=== PATIENT | male | born 1985 | race Caucasian/White ===

== ENCOUNTER 2019-10-17 00:03 | Emergency (ER) | payer OTHER ==
[2019-10-17 00:25] VITALS: TEMP 98.4
--- NOTE | 2019-10-17 01:30 | XR ---
EXAMINATION TYPE: XR chest 2V DATE OF EXAM: 10/17/2019 COMPARISON: NONE HISTORY: Short of breath TECHNIQUE: 2 views FINDINGS: Heart and mediastinum are normal. Lungs are clear. Diaphragm is normal. Bony thorax appears normal. Pulmonary vascularity is normal. IMPRESSION: Normal chest.
--- NOTE | 2019-10-17 01:56 | ED ---
General Adult HPI - General Chief complaint: Chest Pain Stated complaint: Chest Pain Time Seen by Provider: 10/17/19 00:27 Source: patient, family, RN notes reviewed Mode of arrival: ambulatory Limitations: no limitations - History of Present Illness Initial comments: 34-year-old male presents to the emergency determine for a chief complaint of chest pain. Patient states that he has had pain on the left side of his neck after sleeping on it wrong. Patient states it started moving his upper back and left arm. States he now has some mild chest tightness that worsens with movement especially lifting the left arm. He denies shortness of breath. He denies chest pain with exertion. He denies any associated risk factors such as diabetes, hypertension, hypercholesterolemia.Patient has no other complaints at this time including shortness of breath, chest pain, abdominal pain, nausea or vomiting, headache, or visual changes. - Related Data Allergies Allergy/AdvReac Type Severity Reaction Status Date / Time No Known Allergies Allergy Verified 10/17/19 00:25 Review of Systems ROS Statement: Those systems with pertinent positive or pertinent negative responses have been documented in the HPI. ROS Other: All systems not noted in ROS Statement are negative. Past Medical History Past Medical History: No Reported History History of Any Multi-Drug Resistant Organisms: None Reported Past Surgical History: Appendectomy Past Psychological History: No Psychological Hx Reported Smoking Status: Never smoker Past Alcohol Use History: Daily Past Drug Use History: Marijuana General Exam Limitations: no limitations General appearance: alert, in no apparent distress Head exam: Present: atraumatic, normocephalic, normal inspection Eye exam: Present: normal appearance, PERRL, EOMI. Absent: scleral icterus, conjunctival injection ENT exam: Present: normal exam, mucous membranes moist Neck exam: Present: normal inspection, full ROM. Absent: tenderness, meningismus, lymphadenopathy Respiratory exam: Present: normal lung sounds bilaterally, chest wall tenderness (Tenderness noted to the anterior chest wall). Absent: respiratory distress, wheezes, rales, rhonchi, stridor Cardiovascular Exam: Present: regular rate, normal rhythm, normal heart sounds. Absent: systolic murmur, diastolic murmur, rubs, gallop, clicks Extremities exam: Present: normal capillary refill (Radial pulses 2+ in upper ex tremities bilaterally) Neurological exam: Present: alert Course Vital Signs 10/17/19 10/17/19 00:17 02:46 Temperature 98.4 F Pulse Rate 74 71 Respiratory 20 18 Rate Blood Pressure 144/91 135/92 O2 Sat by Pulse 98 98 Oximetry EKG Findings - EKG Comments: EKG Findings:: Normal sinus rhythm, ventricular rate 70, MA interval 160, QTC 421, no ST elevation or depression Medical Decision Making - Medical Decision Making Chest x-ray shows a normal chest. EKG shows a normal sinus rhythm with a ventricular rate of 70. No ST elevation or depression. Patient describes his pain as a tightness that worsens with movement essentially lifting the left arm. He has had muscular skeletal left sided neck and upper back pain as well. Tenderness with palpation of the chest. Patient is cardiac risk factors. He is a never smoker. Pain is consistent with a chest wall syndrome musculoskeletal pain. Patient will follow up with primary care in 1-2 days. He will return for any worsening symptoms. Disposition Clinical Impression: Chest wall pain Disposition: HOME SELF-CARE Condition: Good Instructions (If sedation given, give patient instructions): Chest Pain (ED), Costochondritis (ED) Additional Instructions: Please take Motrin and Tylenol for pain. Please follow-up with primary care in 1-2 days for recheck. If you have any worsening symptoms return here to the emergency room immediately. Is patient prescribed a controlled substance at d/c from ED?: No Referrals: Dionte Carrera MD [STAFF PHYSICIAN] - 1-2 days Time of Disposition: 01:55
[2019-10-17 02:47] VITALS: BP 135/92; PULSE 71; RESP 18
== END 2019-10-17 02:46 | disposition home or self-care (01) ==
LOC: EC 00:03
DX: R07.89 Other chest pain (principal); M54.2 Cervicalgia; M54.9 Dorsalgia, unspecified
CPT/HCPCS: 71046; 93005; 99285

== ENCOUNTER 2019-12-17 15:46 | Emergency (ER) | payer OTHER ==
[2019-12-17 16:01] VITALS: RESP 18
[2019-12-17] MEDS ORDERED: SODIUM CHLORIDE 0.9% 1,000 ML IV STA ×2 (16:30)
[2019-12-17] MEDS ORDERED: ASPIRIN 81 MG PO STA (16:30)
--- NOTE | 2019-12-17 16:33 | ED ---
Chest Pain HPI - General Chief Complaint: Chest Pain Stated Complaint: recheck - chest pain Time Seen by Provider: 12/17/19 16:08 Source: patient, RN notes reviewed, old records reviewed Mode of arrival: ambulatory Limitations: no limitations - History of Present Illness Initial Comments: Michele is a 34-year-old male presents emergency department today for evaluation for complaints of some left-sided chest pain as a pressure on his chest with complaints of some pain going to the jaw and left arm and the right side of his chest for the past 3 days. Patient states that he has had no significant dyspnea. Patient reports pain is better with stretching. Denies any nausea. He was seen in emergency department a few months ago for similar complaints. He is up-to-date. Follow-up with a primary care doctor since that time. He reports a family history of heart disease. He denies any personal history of hypertension or hyperlipidemia. He states he is not seen a primary care doctor in over 10 years. He is a nonsmoker. - Related Data Allergies Allergy/AdvReac Type Severity Reaction Status Date / Time No Known Allergies Allergy Verified 12/17/19 16:01 Review of Systems ROS Statement: Those systems with pertinent positive or pertinent negative responses have been documented in the HPI. ROS Other: All systems not noted in ROS Statement are negative. EKG Findings - EKG Comments: EKG Findings:: EKG shows normal sinus rhythm with sinus arrhythmia, normal EKG. Ventricular rate of 74 bpm.. Intervals 146 ms. QRS duration is 92 ms. QT QTc is 374/4:15 milliseconds. Past Medical History Past Medical History: No Reported History History of Any Multi-Drug Resistant Organisms: None Reported Past Surgical History: Appendectomy Past Psychological History: No Psychological Hx Reported Smoking Status: Never smoker Past Alcohol Use History: Daily Past Drug Use History: Marijuana General Exam - General Exam Comments Initial Comments: 34-year-old male. Alert and oriented 3. No significant distress. Limitations: no limitations General appearance: alert, in no apparent distress Head exam: Present: atraumatic, normocephalic, normal inspection Eye exam: Present: normal appearance, PERRL, EOMI. Absent: scleral icterus, conjunctival injection, periorbital swelling ENT exam: Present: normal exam, mucous membranes moist Neck exam: Present: normal inspection. Absent: tenderness, meningismus, lymphadenopathy Respiratory exam: Present: normal lung sounds bilaterally. Absent: respiratory distress, wheezes, rales, rhonchi, stridor Cardiovascular Exam: Present: regular rate, normal rhythm, normal heart sounds. Absent: systolic murmur, diastolic murmur, rubs, gallop, clicks GI/Abdominal exam: Present: soft, normal bowel sounds. Absent: distended, tenderness, guarding, rebound, rigid Extremities exam: Present: normal inspection, full ROM, normal capillary refill. Absent: tenderness, pedal edema, joint swelling, calf tenderness Back exam: Present: normal inspection Neurological exam: Present: alert, oriented X3, CN II-XII intact Psychiatric exam: Present: normal affect, normal mood Course Vital Signs 12/17/19 12/17/19 12/17/19 15:58 18:00 19:07 Temperature 98.2 F 97.9 F Pulse Rate 78 88 73 Respiratory 18 18 18 Rate Blood Pressure 156/92 117/76 125/70 O2 Sat by Pulse 99 98 98 Oximetry Chest Pain [facility] Patient is a 34 year old male whom presents today for concern for chest pain for 2 days. Labs were reviewed and normal, negative troponin and CXR is negative for acute changes. Patient pain is better with stretching, and discussed seems to be musculoskeletal. Patient is informed of labs and treatment plan. Discussed patient needs PCP follow up, but will give referral to cardiology. Discussed return parameters. Disposition Clinical Impression: Chest pain Disposition: HOME SELF-CARE Condition: Good Instructions (If sedation given, give patient instructions): Chest Pain (ED) Additional Instructions: Patient is a follow-up with your primary care physician within the next few weeks. There is any other alarming signs or symptoms please return to the ER for reevaluation. Recommended following up with cardiology. Is patient prescribed a controlled substance at d/c from ED?: No Referrals: None,Stated [Primary Care Provider] - 1-2 days Zachery Nava MD [STAFF PHYSICIAN] - 1-2 days Time of Disposition: 18:12
[2019-12-17 17:06] LABS: Partial Thromboplastin Time 26.9 sec (22.0-30.0); Prothrombin Time 10.5 sec (9.0-12.0)
[2019-12-17 17:07] LABS: Basophils # (A) 0.1 k/uL (0-0.2); Basophils % (A) 1 %; Eosinophils # (A) 0.1 k/uL (0-0.7); Eosinophils % (A) 1 %; HCT 40.1 % (39.0-53.0); HGB 13.4 gm/dL (13.0-17.5); Lymphocytes # (A) 3.2 k/uL (1.0-4.8); Lymphocytes % (A) 27 %; MCHC 33.3 g/dL (31.0-37.0); Mean Platelet Volume 7.4; Monocytes # (A) 0.5 k/uL (0-1.0); Monocytes % (A) 4 %; Neutrophils # (A) 7.9 k/uL (1.3-7.7); Neutrophils % (A) 66 %; Platelet Count 226 k/uL (150-450); RBC 4.61 m/uL (4.30-5.90)
--- NOTE | 2019-12-17 17:08 | XR ---
EXAMINATION TYPE: XR chest 2V DATE OF EXAM: 12/17/2019 COMPARISON: NONE HISTORY: Chest pain TECHNIQUE: 2 views FINDINGS: Heart and mediastinum are normal. Lungs are clear. Diaphragm is normal. Bony thorax appears normal. IMPRESSION: Normal chest.
[2019-12-17 17:13] LABS: ALT 35 U/L (4-49); AST 27 U/L (17-59); African American GFR (CKD) >90 (>60 ml/min/1.73 sqM); Albumin 4.4 g/dL (3.5-5.0); Alkaline Phosphatase 94 U/L (38-126); Amylase 41 U/L (30-110); Anion Gap 7 mmol/L; Blood Urea Nitrogen 17 mg/dL (9-20); Calcium 9.2 mg/dL (8.4-10.2); Carbon Dioxide 24 mmol/L (22-30); Chloride 106 mmol/L (98-107); Glucose 95 mg/dL (74-99); Magnesium 1.8 mg/dL (1.6-2.3); Non-African American GFR(CKD) >90 (>60 ml/min/1.73 sqM); Potassium 3.7 mmol/L (3.5-5.1); Sodium 137 mmol/L (137-145); Total Bilirubin 0.6 mg/dL (0.2-1.3); Total Protein 7.2 g/dL (6.3-8.2)
[2019-12-17 19:08] VITALS: BP 125/70; PULSE 73; TEMP 97.9
== END 2019-12-17 19:08 | disposition home or self-care (01) ==
LOC: EC 15:46
DX: R07.9 Chest pain, unspecified (principal); R68.84 Jaw pain; M79.602 Pain in left arm; Z82.49 Family history of ischemic heart disease and other diseases of the circulatory system
CPT/HCPCS: 36415; 71046; 80053; 82150; 83690; 83735; 83880; 84484; 85025; 85610; 85730; 93005; 96360; 96361; 99285

== ENCOUNTER 2020-04-12 10:03 | Emergency (ER) | payer OTHER ==
[2020-04-12 10:11] VITALS: PULSE 90; RESP 18
[2020-04-12] MEDS ORDERED: SODIUM CHLORIDE 0.9% 500 ML 500 ML IV STA (10:37)
--- NOTE | 2020-04-12 10:44 | ED ---
General Adult HPI - General Chief complaint: Shortness of Breath Stated complaint: NVD,Cough Time Seen by Provider: 04/12/20 10:18 Source: patient, RN notes reviewed, old records reviewed Mode of arrival: ambulatory Limitations: no limitations - History of Present Illness Initial comments: 34-year-old male patient to ED for evaluation. Patient has gallbladder removed 6 days ago, an elective procedure. 3 days later he began developing typical covered symptoms. Included loss of taste and smell, some nausea vomiting diarrhea, cough, small amount of shortness of breath with exertion. Patient was that he has had a waxing and waning fever. T-max of 102. He reports that he did have a coronavirus test on Thursday to get the results of which are negative. He has been told by his surgeon who operates out of a different facility to come get evaluated. He does not report any abdominal pain. Did not report any other complaints. Systemic: Pt denies fatigue, rash. Pt denies weakness, night sweats, weight loss. Neuro: Pt denies headache, visual disturbances, syncope or pre-syncope. HEENT: Pt denies ocular discharge or irritation, otalgia, rhinorrhea, pharyngitis or notable lymphadenopathy. Cardiopulmonary: Pt denies chest pain, heart palpitations, dyspnea on exertion. Abdominal/GI: Pt denies abdominal pain, n/v/d. : Pt denies dysuria, burning w/ urination, frequency/urgency. Denies new onset urinary or bowel incontinence. MSK: Pt denies myalgia, loss of strength or function in extremities. Neuro: Pt denies new onset weakness, paresthesias. - Related Data Home Medications Medication Instructions Recorded Confirmed Acetaminophen [Tylenol Extra 500 mg PO Q4H PRN 04/12/20 04/12/20 Strength] Ascorbic Acid [Vitamin C] 1,000 mg PO AC-SUPPER 04/12/20 04/12/20 Garlic 1 tab PO AC-SUPPER 04/12/20 04/12/20 Ibuprofen [Motrin Ib] 200 mg PO Q4H PRN 04/12/20 04/12/20 Ibuprofen [Motrin] 800 mg PO TID PRN 04/12/20 04/12/20 Magnesium(Unknown) 1 tab PO AC-SUPPER 04/12/20 04/12/20 Multivitamins, Thera [Multivitamin 1 tab PO AC-SUPPER 04/12/20 04/12/20 (formulary)] [place]-3 Fatty Acids/Fish Oil [Fish 1 cap PO AC-SUPPER 04/12/20 04/12/20 Oil 1,000 mg Softgel] Vitamin D3(Unknown) 1 tab PO AC-SUPPER 04/12/20 04/12/20 Zinc 50 mg PO AC-SUPPER 04/12/20 04/12/20 Previous Rx's Medication Instructions Recorded Dexamethasone [Decadron] 6 mg PO Q24HR 10 Days #10 tablet 04/12/20 Allergies Allergy/AdvReac Type Severity Reaction Status Date / Time No Known Allergies Allergy Verified 04/12/20 11:43 Review of Systems ROS Statement: Those systems with pertinent positive or pertinent negative responses have been documented in the HPI. ROS Other: All systems not noted in ROS Statement are negative. Past Medical History Past Medical History: No Reported History, Liver Disease Additional Past Medical History / Comment(s): fatty liver History of Any Multi-Drug Resistant Organisms: None Reported Past Surgical History: Appendectomy, Cholecystectomy Past Psychological History: No Psychological Hx Reported Smoking Status: Never smoker Past Alcohol Use History: Daily Past Drug Use History: Marijuana General Exam - General Exam Comments Initial Comments: Constitutional: NAD, AOX3, Pt has pleasant affect. HEENT: NC/AT, trachea midline, neck supple, no lymphadenopathy. Posterior pharynx non erythematous, without exudates. External ears appear normal, without discharge. Mucous membranes moist. Eyes PERRLA, EOM intact. There is no scleral icterus. No pallor noted. Cardiopulmonary: RRR, no murmurs, rubs or gallops, no JVD noted. Lungs CTAB in anterior and posterior chinchilla. No peripheral edema. Abdominal exam: Abdomen soft and non-distended. Abdomen non-tender to palpation in all 4 quadrants. Bowel sounds active in LLQ. No hepatosplenomegaly. No ecchymosis. incision sites are clean and dry. Neuro: CN II-XII grossly intact. No nuchal rigidity. No raccon eyes, no campuzano sign, no hemotympanum. No cervical spinal tenderness. MSK: No posterior calf tenderness bilaterally, homans sign negative bilaterally. Posterior tibialis and radial pulse +2 bilaterally. Sensation intact in upper and lower extremities. Full active ROM in upper and lower extremities, 5/5 stregnth. Limitations: no limitations Course Vital Signs 04/12/20 10:05 Temperature 98.6 F Pulse Rate 90 Respiratory 18 Rate Blood Pressure 129/90 O2 Sat by Pulse 98 Oximetry Medical Decision Making - Medical Decision Making 34 year old male pt to ed with symptoms consistent with covid. Physical exam negative for acute pathology. Laboratory investigations significant for covid positive. CXR displayed developing pneumonia. Patient is in no respiratory distress. Will be discharged with close return precautions, burst steroid treatment and close outpatient follow up. Patient will be given first dose in ED, I did call pharmacy and change it to 9 days, which will give him a total of 10. This dosing was recommended by Pharmacist Tri and attending physician. Case discussed in depth with Dr. Reeder. - Lab Data Result diagrams: 04/12/20 10:56 04/12/20 10:56 Lab Results 04/12/20 04/12/20 04/12/20 Range/Units 10:56 10:56 10:56 WBC 5.1 (3.8-10.6) k/uL RBC 4.82 (4.30-5.90) m/uL Hgb 14.1 (13.0-17.5) gm/dL Hct 41.0 (39.0-53.0) % MCV 84.9 (80.0-100.0) fL MCH 29.1 (25.0-35.0) pg MCHC 34.3 (31.0-37.0) g/dL RDW 13.4 (11.5-15.5) % Plt Count 173 (150-450) k/uL MPV 7.6 Neutrophils % 68 % Lymphocytes % 25 % Monocytes % 5 % Eosinophils % 0 % Basophils % 1 % Neutrophils # 3.5 (1.3-7.7) k/uL Lymphocytes # 1.3 (1.0-4.8) k/uL Monocytes # 0.2 (0-1.0) k/uL Eosinophils # 0.0 (0-0.7) k/uL Basophils # 0.0 (0-0.2) k/uL Sodium 137 (137-145) mmol/L Potassium 3.9 (3.5-5.1) mmol/L Chloride 103 (98-107) mmol/L Carbon Dioxide 25 (22-30) mmol/L Anion Gap 9 mmol/L BUN 15 (9-20) mg/dL Creatinine 0.93 (0.66-1.25) mg/dL Est GFR (CKD-EPI)AfAm >90 (>60 ml/min/1.73 sqM) Est GFR (CKD-EPI)NonAf >90 (>60 ml/min/1.73 sqM) Glucose 101 H (74-99) mg/dL Plasma Lactic Acid [place] (0.7-2.0) mmol/L Calcium 8.7 (8.4-10.2) mg/dL Total Bilirubin 0.5 (0.2-1.3) mg/dL AST 46 (17-59) U/L ALT 49 (4-49) U/L Alkaline Phosphatase 88 (38-126) U/L Troponin I (0.000-0.034) ng/mL NT-Pro-B Natriuret Pep pg/mL Total Protein 7.5 (6.3-8.2) g/dL Albumin 4.2 (3.5-5.0) g/dL Lipase 41 (23-300) U/L Urine Color Yellow Urine Appearance Clear (Clear) Urine pH 6.0 (5.0-8.0) Ur Specific [place] 1.028 (1.001-1.035) Urine Protein Trace H (Negative) Urine Glucose (UA) Negative (Negative) Urine Ketones Negative (Negative) Urine Blood Negative (Negative) Urine Nitrite Negative (Negative) Urine Bilirubin Negative (Negative) Urine Urobilinogen <2.0 (<2.0) mg/dL Ur Leukocyte Esterase Negative (Negative) Coronavirus (PCR) (Not Detectd) 04/12/20 04/12/20 04/12/20 Range/Units 10:56 10:56 10:56 WBC (3.8-10.6) k/uL RBC (4.30-5.90) m/uL Hgb (13.0-17.5) gm/dL Hct (39.0-53.0) % MCV (80.0-100.0) fL MCH (25.0-35.0) pg MCHC (31.0-37.0) g/dL RDW (11.5-15.5) % Plt Count (150-450) k/uL MPV Neutrophils % % Lymphocytes % % Monocytes % % Eosinophils % % Basophils % % Neutrophils # (1.3-7.7) k/uL Lymphocytes # (1.0-4.8) k/uL Monocytes # (0-1.0) k/uL Eosinophils # (0-0.7) k/uL Basophils # (0-0.2) k/uL Sodium (137-145) mmol/L Potassium (3.5-5.1) mmol/L Chloride (98-107) mmol/L Carbon Dioxide (22-30) mmol/L Anion Gap mmol/L BUN (9-20) mg/dL Creatinine (0.66-1.25) mg/dL Est GFR (CKD-EPI)AfAm (>60 ml/min/1.73 sqM) Est GFR (CKD-EPI)NonAf (>60 ml/min/1.73 sqM) Glucose (74-99) mg/dL Plasma Lactic Acid [place] 0.8 (0.7-2.0) mmol/L Calcium (8.4-10.2) mg/dL Total Bilirubin (0.2-1.3) mg/dL AST (17-59) U/L ALT (4-49) U/L Alkaline Phosphatase (38-126) U/L Troponin I <0.012 (0.000-0.034) ng/mL NT-Pro-B Natriuret Pep <11 pg/mL Total Protein (6.3-8.2) g/dL Albumin (3.5-5.0) g/dL Lipase (23-300) U/L Urine Color Urine Appearance (Clear) Urine pH (5.0-8.0) Ur Specific [place] (1.001-1.035) Urine Protein (Negative) Urine Glucose (UA) (Negative) Urine Ketones (Negative) Urine Blood (Negative) Urine Nitrite (Negative) Urine Bilirubin (Negative) Urine Urobilinogen (<2.0) mg/dL Ur Leukocyte Esterase (Negative) Coronavirus (PCR) (Not Detectd) 04/12/20 Range/Units 11:32 WBC (3.8-10.6) k/uL RBC (4.30-5.90) m/uL Hgb (13.0-17.5) gm/dL Hct (39.0-53.0) % MCV (80.0-100.0) fL MCH (25.0-35.0) pg MCHC (31.0-37.0) g/dL RDW (11.5-15.5) % Plt Count (150-450) k/uL MPV Neutrophils % % Lymphocytes % % Monocytes % % Eosinophils % % Basophils % % Neutrophils # (1.3-7.7) k/uL Lymphocytes # (1.0-4.8) k/uL Monocytes # (0-1.0) k/uL Eosinophils # (0-0.7) k/uL Basophils # (0-0.2) k/uL Sodium (137-145) mmol/L Potassium (3.5-5.1) mmol/L Chloride (98-107) mmol/L Carbon Dioxide (22-30) mmol/L Anion Gap mmol/L BUN (9-20) mg/dL Creatinine (0.66-1.25) mg/dL Est GFR (CKD-EPI)AfAm (>60 ml/min/1.73 sqM) Est GFR (CKD-EPI)NonAf (>60 ml/min/1.73 sqM) Glucose (74-99) mg/dL Plasma Lactic Acid [place] (0.7-2.0) mmol/L Calcium (8.4-10.2) mg/dL Total Bilirubin (0.2-1.3) mg/dL AST (17-59) U/L ALT (4-49) U/L Alkaline Phosphatase (38-126) U/L Troponin I (0.000-0.034) ng/mL NT-Pro-B Natriuret Pep pg/mL Total Protein (6.3-8.2) g/dL Albumin (3.5-5.0) g/dL Lipase (23-300) U/L Urine Color Urine Appearance (Clear) Urine pH (5.0-8.0) Ur Specific [place] (1.001-1.035) Urine Protein (Negative) Urine Glucose (UA) (Negative) Urine Ketones (Negative) Urine Blood (Negative) Urine Nitrite (Negative) Urine Bilirubin (Negative) Urine Urobilinogen (<2.0) mg/dL Ur Leukocyte Esterase (Negative) Coronavirus (PCR) Detected A (Not Detectd) - EKG Data -: EKG Interpreted by Me (and Dr. Reeder ) EKG Comments: ventricular rate 92, NM interval 164, QRS 96, QT/QTC 354/437. No evidence rhythm, normal EKG, no concern for acute ischemia. Disposition Clinical Impression: COVID-19 Disposition: HOME SELF-CARE Condition: Stable Instructions (If sedation given, give patient instructions): Upper Respiratory Infection (ED) Additional Instructions: Follow up with PCP tomorrow. Begin taking multivitamin which contains zinc and vitamin c. Take steroids as directed. Return to ED immediately if symptoms worsen in anyway. Prescriptions: Dexamethasone [Decadron] 6 mg PO Q24HR 10 Days #10 tablet Is patient prescribed a controlled substance at d/c from ED?: No Referrals: Jose Dejesus DO [Primary Care Provider] - 1-2 days
--- NOTE | 2020-04-12 11:18 | XR ---
EXAMINATION TYPE: XR chest 2V DATE OF EXAM: 04/12/2020 COMPARISON: 12/17/2019 TECHNIQUE: PA and lateral views submitted. HISTORY: Shortness of breath FINDINGS: The lungs are clear and there is no pneumothorax, pleural effusion, or focal pneumonia. Left perihil ar patchy infiltrate. Coarsened interstitium centrally. Heart size normal. IMPRESSION: 1. Patchy left perihilar infiltrate correlate for developing pneumonia. 2. Coarsened interstitium can be seen with viral bronchiolitis or interstitial pneumonitis..
[2020-04-12 11:19] LABS: ALT 49 U/L (4-49); AST 46 U/L (17-59); African American GFR (CKD) >90 (>60 ml/min/1.73 sqM); Albumin 4.2 g/dL (3.5-5.0); Alkaline Phosphatase 88 U/L (38-126); Anion Gap 9 mmol/L; Blood Urea Nitrogen 15 mg/dL (9-20); Calcium 8.7 mg/dL (8.4-10.2); Carbon Dioxide 25 mmol/L (22-30); Chloride 103 mmol/L (98-107); Glucose 101 mg/dL (74-99); Lipase 41 U/L (23-300); Non-African American GFR(CKD) >90 (>60 ml/min/1.73 sqM); Potassium 3.9 mmol/L (3.5-5.1); Sodium 137 mmol/L (137-145); Total Bilirubin 0.5 mg/dL (0.2-1.3); Total Protein 7.5 g/dL (6.3-8.2)
--- NOTE | 2020-04-12 11:19 | XR ---
EXAMINATION TYPE: XR KUB DATE OF EXAM: 04/12/2020 COMPARISON: NONE HISTORY: Abdominal pain and nausea TECHNIQUE: One view abdominal series FINDINGS: The osseous structures are intact. The bowel gas pattern is nonspecific. No diagnostic evidence of o bstruction. No suspicious calcifications. IMPRESSION: 1. Nonspecific abdomen.
[2020-04-12 11:35] LABS: Basophils % (A) 1 %; Eosinophils % (A) 0 %; HGB 14.1 gm/dL (13.0-17.5); Lymphocytes # (A) 1.3 k/uL (1.0-4.8); Lymphocytes % (A) 25 %; MCH 29.1 pg (25.0-35.0); MCHC 34.3 g/dL (31.0-37.0); MCV 84.9 fL (80.0-100.0); Mean Platelet Volume 7.6; Monocytes # (A) 0.2 k/uL (0-1.0); Monocytes % (A) 5 %; Neutrophils # (A) 3.5 k/uL (1.3-7.7); Neutrophils % (A) 68 %; Platelet Count 173 k/uL (150-450); RBC 4.82 m/uL (4.30-5.90); RDW 13.4 % (11.5-15.5); WBC 5.1 k/uL (3.8-10.6)
[2020-04-12 12:49] LABS: Appearance,Urine Clear (Clear); Bilirubin,Urine Negative (Negative); Blood,Urine Negative (Negative); Color,Urine Yellow; Glucose,Urine (UA) Negative (Negative); Ketones,Urine Negative (Negative); Leukocyte Esterase,Urine Negative (Negative); Nitrite,Urine Negative (Negative); Protein,Urine Trace (Negative); Specific Gravity,Urine 1.028 (1.001-1.035); Urobilinogen,Urine <2.0 mg/dL (<2.0)
[2020-04-12] MEDS ORDERED: dexAMETHasone 2 MG TAB PO STA (13:01)
[2020-04-12 13:50] VITALS: BP 138/80; TEMP 100.1
== END 2020-04-12 13:50 | disposition home or self-care (01) ==
LOC: EC 10:03
DX: U07.1 COVID-19 (principal); Z90.49 Acquired absence of other specified parts of digestive tract
CPT/HCPCS: 36415; 93005; 83880; 80053; 83605; 83690; 84484; 85025; 81003; 87635; 71046; 74018; 99285; 96360; U0003; J8540

== ENCOUNTER 2021-05-02 20:33 | Emergency (ER) | payer OTHER ==
[2021-05-02 22:28] VITALS: RESP 20
--- NOTE | 2021-05-02 22:47 | XR ---
EXAMINATION TYPE: XR soft tissue neck DATE OF EXAM: 05/02/2021 COMPARISON: NONE HISTORY: Foreign body TECHNIQUE: 2 views FINDINGS: Epiglottis is normal. Tonsils and adenoids appear normal. Subglottic trachea appears normal . There is no evidence of a radiopaque foreign body. Prevertebral soft tissues appear normal. IMPRESSION: Negative exam. No evidence of a foreign body. Normal epiglottis.
--- NOTE | 2021-05-02 22:48 | XR ---
EXAMINATION TYPE: XR chest 2V DATE OF EXAM: 05/02/2021 COMPARISON: 04/12/2020 HISTORY: Foreign body sensation TECHNIQUE: 2 views FINDINGS: Heart and mediastinum are normal. Lungs are clear. Diaphragm is normal. There is no evidenc e of atelectasis. Trachea is midline. Bony thorax is intact. IMPRESSION: Normal chest. There is clearing of the left side pneumonia compared to old exam.
--- NOTE | 2021-05-02 23:17 | ED ---
General Adult HPI - General Chief complaint: Skin/Abscess/Foreign Body Stated complaint: Foreign object stuck in throat Time Seen by Provider: 05/02/21 22:59 Source: patient, RN notes reviewed, old records reviewed Mode of arrival: ambulatory Limitations: no limitations - History of Present Illness Initial comments: Patient is a 35-year-old male with no significant past medical history who presents emergency Department with concern for possible food impaction versus choking. Patient states he was eating rice and some other food earlier when he felt like the redness [place] his esophagus. He coughed and was nervous that he may have aspirated. States he has a strange sensation in his chest that is improving. He denies any difficulty in breathing, abdominal pain, nausea, vomiting. This occurred shortly prior to arrival. Denies any nausea or vomiting currently. His no other acute complaints at this time. Has been tolerating by mouth intake of both solids and liquids at home prior to arrival. He presents over concern for possible aspiration or food impaction. I evaluated the patient when he was placed in a room. - Related Data Home Medications Medication Instructions Recorded Confirmed Acetaminophen [Tylenol Extra 500 mg PO Q4H PRN 04/12/20 04/12/20 Strength] Ascorbic Acid [Vitamin C] 1,000 mg PO AC-SUPPER 04/12/20 04/12/20 Garlic 1 tab PO AC-SUPPER 04/12/20 04/12/20 Ibuprofen [Motrin Ib] 200 mg PO Q4H PRN 04/12/20 04/12/20 Ibuprofen [Motrin] 800 mg PO TID PRN 04/12/20 04/12/20 Magnesium(Unknown) 1 tab PO AC-SUPPER 04/12/20 04/12/20 Multivitamins, Thera [Multivitamin 1 tab PO AC-SUPPER 04/12/20 04/12/20 (formulary)] [place]-3 Fatty Acids/Fish Oil [Fish 1 cap PO AC-SUPPER 04/12/20 04/12/20 Oil 1,000 mg Softgel] Vitamin D3(Unknown) 1 tab PO AC-SUPPER 04/12/20 04/12/20 Zinc 50 mg PO AC-SUPPER 04/12/20 04/12/20 Previous Rx's Medication Instructions Recorded Albuterol Inhaler [Ventolin Hfa 1 puff INHALATION RT-TID PRN #1 04/12/20 Inhaler] inhaler Dexamethasone [Decadron] 6 mg PO Q24HR 10 Days #10 tablet 04/12/20 Allergies Allergy/AdvReac Type Severity Reaction Status Date / Time No Known Allergies Allergy Verified 05/02/21 22:28 Review of Systems ROS Statement: Those systems with pertinent positive or pertinent negative responses have been documented in the HPI. Review of Systems: CONST: Denies fever EYES: Denies blurry vision ENT: Denies nasal congestion C/V: Denies Chest pain RESP: Denies shortness of breath GI: Denies abdominal pain : Denies dysuria SKIN: Denies rash. MSK: Denies joint pain. NEURO: Denies headache ROS Other: All systems not noted in ROS Statement are negative. Past Medical History Past Medical History: No Reported History, Liver Disease Additional Past Medical History / Comment(s): fatty liver History of Any Multi-Drug Resistant Organisms: None Reported Past Surgical History: Appendectomy, Cholecystectomy Past Psychological History: No Psychological Hx Reported Smoking Status: Never smoker Past Alcohol Use History: Daily Past Drug Use History: Marijuana General Exam - General Exam Comments Initial Comments: General: Appears in no acute distress. HEAD: Normal with no signs of head trauma. EYES: EOMI ENT: Hearing grossly intact, normal oropharynx. No stridor. RESPIRATORY: Clear breath sounds bilaterally. No wheezes, rales, or rhonchi. No increased work of breathing. C/V: Regular rate and rhythm. S1 and S2 auscultated, no edema, peripheral pulses 2+ and intact throughout ABD: Abd is soft, nontender, nondistended EXT: No obvious deformity. SKIN: No rashes or lesions observed on exposed skin. NEURO: Alert and oriented 4. Limitations: no limitations Course Vital Signs 05/02/21 22:19 Temperature 99.4 F Pulse Rate 107 H Respiratory 20 Rate Blood Pressure 128/82 O2 Sat by Pulse 97 Oximetry Medical Decision Making - Medical Decision Making This and the patient's presentation and physical exam, there is concern for possible food impaction versus aspiration by the patient. He has tolerated by mouth intake. We will obtain a chest x-ray and neck x-ray and give the patient soda. He states he does not believe any bones or anything was in the food he was eating, he states it was rice.. He is feeling improved. Patient's x-rays showed no acute process. Patient tolerated drinking the soda without difficulty. He states that this time he is feeling improved. I discussed with him that I believe it is safe for him to follow up with outpatient gastroenterology if he has continued symptoms, however he likely passed whenever blockage he had. [facility] He was in agreement this plan. I instructed the patient to follow up with their PCP in the next 3 days. I provided contact information for follow up with gastroenterology. I explained that the patient should return to the emergency department if they experience any worsening symptoms. Strict return precautions were discussed with the patient. The patient expressed understanding of these instructions. I answered all questions that the patient had. The patient was discharged home in. Condition with their prescriptions and follow up information. Disposition Clinical Impression: Choking due to food (regurgitated) Disposition: HOME SELF-CARE Condition: Good Instructions (If sedation given, give patient instructions): Performing the Heimlich Maneuver (ED), Esophageal Foreign Body (ED), Food Impaction (ED) Is patient prescribed a controlled substance at d/c from ED?: No Referrals: Jose Dejesus DO [Primary Care Provider] - 1-2 days Rachell Nava MD [STAFF PHYSICIAN] - 1-2 days
[2021-05-02 23:25] VITALS: BP 126/77; PULSE 100; TEMP 98.4
== END 2021-05-02 23:24 | disposition home or self-care (01) ==
LOC: EC 20:33
DX: T18.128A Food in esophagus causing other injury, initial encounter (principal); F12.90 Cannabis use, unspecified, uncomplicated; Z90.49 Acquired absence of other specified parts of digestive tract; X58.XXXA Exposure to other specified factors, initial encounter
CPT/HCPCS: 70360; 71046; 99283